=== PATIENT | male | born 1945 | race Caucasian/White ===

== ENCOUNTER → 2018-12-10 | Outpatient (CLI) | payer MEDICARE, OTHER ==
[~2018-12-10] MED LIST: AMLO10 PO; AMLO5 PO; ATOR80 PO; Aspirin EC81 MG PO; CLOP75 PO; DIGO.25 PO; Lopressor 50 mg50 MG PO; METO100ER PO; Nitrostat0.4 MG SL; Norco 5-325 Ta1 EACH PO; OXYACE5T PO; OXYB5 PO; PRAV20 PO; TERA5 PO; WARF5 PO; WARF6 PO; WARF7.5 PO
[2018-12-10 09:21] LABS: Source, Urine Clean Catch
[2018-12-10 10:32] LABS: Bilirubin, Urine Neg (Neg); Blood, Urine 1+ (Neg); Glucose Qualitative, Urine Neg (Neg); Ketones, Urine Neg (Neg); Leukocyte Esterase, Urine Neg (Neg); Nitrite, Urine Neg (Neg); Protein, Urine 1+ (Neg); Specific Gravity, Urine 1.015 (1.003-1.022); Urobilinogen, Urine NORM (Normal); pH, Urine 6.5 (5.0-8.0)
[2018-12-10 10:55] LABS: Appearance, Urine Clear (Clear); Color, Urine Yellow (P-Yellow)
[2018-12-10 10:57] LABS: Bacteria Rare /hpf; Mucus Mod (0-Heavy); Red Blood Cells, Urine 0-2 /hpf (0-2); Squamous Epithelial Cells Rare /hpf (Few); White Blood Cells, Urine 0-2 /hpf (0-5)
[2018-12-10 10:58] LABS: Calcium Oxalate Crystals Mod /hpf; Granular Casts Rare /lpf (0)
== END | disposition home or self-care (01) ==
LOC: LAB 09:10 → LAB SHORT 09:10
PROVIDERS: Internal Medicine
DX: R35.1 Nocturia (principal)
CPT/HCPCS: 81001

== ENCOUNTER 2020-08-01 18:55 | Emergency (ER) | payer MEDICARE, OTHER ==
[~2020-08-01] VITALS: Ht 190.5 cm; Wt 106.6 kg
[2020-08-01] MEDS ORDERED: RASA1 PO (19:55)
[2020-08-01] MEDS ORDERED: CARBIDOPA-LEVO1 EA15 PO (19:58)
[2020-08-01] MEDS ORDERED: AMLODIPINE BESY10 MG PO (19:58)
[2020-08-01] MEDS ORDERED: ENTRESTO 24 MG1 EAC3 PO (19:58)
[2020-08-01] MEDS ORDERED: Hytrin2 MG PO (19:58)
[2020-08-01] MEDS ORDERED: AMAN100 PO (19:58)
[2020-08-01] MEDS ORDERED: SPIRONOLACTONE25 MG PO (20:01)
[2020-08-01] MEDS ORDERED: METOPROLOL SUCC25 MG PO (20:01)
[2020-08-01] MEDS ORDERED: ATORVASTATIN CA20 MG PO (20:01)
[2020-08-01] MEDS ORDERED: DIGOX125 MC1 PO (20:01)
[2020-08-01] MEDS ORDERED: CEPH500 PO (20:37)
== END 2020-08-01 21:50 | disposition home or self-care (01) ==
LOC: ER 18:55
DX: S63.280A Dislocation of proximal interphalangeal joint of right index finger, initial encounter (principal); S63.282A Dislocation of proximal interphalangeal joint of right middle finger, initial encounter; S61.210A Laceration without foreign body of right index finger without damage to nail, initial encounter; S61.212A Laceration without foreign body of right middle finger without damage to nail, initial encounter; I10 Essential (primary) hypertension; I48.91 Unspecified atrial fibrillation; E03.9 Hypothyroidism, unspecified; Z23 Encounter for immunization; Z88.0 Allergy status to penicillin; Z79.899 Other long term (current) drug therapy; Z79.01 Long term (current) use of anticoagulants; Z79.02 Long term (current) use of antithrombotics/antiplatelets; W01.10XA Fall on same level from slipping, tripping and stumbling with subsequent striking against unspecified object, initial encounter
CPT/HCPCS: 26700; 36415; 73130; 90471; 90714; 96372-59; 99283-25; A9270-GY; J3010

== ENCOUNTER → 2022-08-02 | Outpatient (CLI) | payer MEDICARE, OTHER ==
[~2022-08-02] MED LIST changes: +AMAN100 PO; +AMLODIPINE BESY10 MG PO; +ATORVASTATIN CA20 MG PO; +CARBIDOPA-LEVO1 EA15 PO; +CEPH500 PO; +DIGOX125 MC1 PO; +ENTRESTO 24 MG1 EAC3 PO; +Hytrin2 MG PO; +METOPROLOL SUCC25 MG PO; +RASA1 PO; +SPIRONOLACTONE25 MG PO
[2022-08-02 12:37] LABS: Bun/Creatinine Ratio 13.6 (12.0-20.0); Creatinine, Blood 1.18 mg/dL (0.60-1.20); Potassium, Blood 3.4 mmol/L (3.5-5.5)
== END | disposition home or self-care (01) ==
LOC: LAB SHORT 11:06 → LAB 11:06
PROVIDERS: Internal Medicine
DX: I48.0 Paroxysmal atrial fibrillation (principal)
CPT/HCPCS: 36415; 80048; 83880

== ENCOUNTER → 2023-02-14 | Outpatient (CLI) | payer MEDICARE, OTHER | LOC: LAB SHORT 07:07 → PLD 07:07 | DX: R23.8 Other skin changes (principal) | CPT/HCPCS: 88342 ==